=== PATIENT | female | born 1970 | race Caucasian/White ===

== ENCOUNTER 2017-01-06 06:39 | Emergency (ER) | payer OTHER ==
[~2017-01-06] VITALS: Ht 154.9 cm; Wt 125.0 kg
[~2017-01-06 06:39] MED LIST: ADIPEX-P37.5 MG PO; LORTAB 5/500 501 TAB PO; NO HOME MEDICATIONS; NORCO 325 MG-51 TAB PO; NORCO 325 MG-7.1 TAB PO; PRILOSEC 20MG20 MG PO; PRILOSEC40 MG PO; ZITHROMAX Z PA250 MG PO
[2017-01-06 06:42] VITALS: BP 172/84; TEMP 99.1
[2017-01-06] MEDS ORDERED: VALIUM 2MG T2 MG/TAB PO (07:12)
[2017-01-06 08:14] VITALS: PULSE 80
== END 2017-01-06 08:15 | disposition home or self-care (01) ==
LOC: COL.ER 06:39
DX: M43.6 Torticollis (principal); M62.838 Other muscle spasm; F17.210 Nicotine dependence, cigarettes, uncomplicated
CPT/HCPCS: J1885; J2360

== ENCOUNTER → 2017-09-18 | Outpatient (CLI) | payer OTHER ==
[~2017-09-18] MED LIST changes: +VALIUM 2MG T2 MG/TAB PO
== END ==
LOC: MC.RAD 12:44
DX: N60.02 Solitary cyst of left breast (principal)

== ENCOUNTER 2018-01-06 12:28 | Emergency (ER) | payer SELFPAY ==
[~2018-01-06] VITALS: Ht 154.9 cm; Wt 136.4 kg
[2018-01-06 12:33] VITALS: BP 176/99; TEMP 99.2
[2018-01-06] MEDS ORDERED: CLEOCIN HCL300 MG PO (13:39)
[2018-01-06 13:54] VITALS: PULSE 84
== END 2018-01-06 13:56 | disposition home or self-care (01) ==
LOC: COL.ER 12:28
DX: J02.9 Acute pharyngitis, unspecified (principal); H92.02 Otalgia, left ear; J45.909 Unspecified asthma, uncomplicated; Z98.890 Other specified postprocedural states; Z87.891 Personal history of nicotine dependence

== ENCOUNTER → 2018-01-23 | Outpatient (CLI) | payer SELFPAY ==
[~2018-01-23] MED LIST changes: +CLEOCIN HCL300 MG PO
== END ==
LOC: COL.RAD 12:15
DX: M47.814 Spondylosis without myelopathy or radiculopathy, thoracic region (principal); R05 Cough

== ENCOUNTER 2020-12-12 14:43 | Emergency (ER) | payer OTHER, MEDICAID ==
[~2020-12-12] VITALS: Ht 154.9 cm; Wt 138.6 kg
[2020-12-12 15:12] VITALS: BP 153/91; TEMP 97.1
[2020-12-12] MEDS ORDERED: K-DUR20 MEQ PO (15:47)
[2020-12-12] MEDS ORDERED: SINGULAIR 110 MG/TAB PO (15:48)
[2020-12-12] MEDS ORDERED: PAXIL CR 12.512.5 MG PO (15:48)
[2020-12-12] MEDS ORDERED: HYGROTON50 MG PO (15:48)
[2020-12-12] MEDS ORDERED: PRAVACHOL10 MG PO (15:49)
[2020-12-12] MEDS ORDERED: NORFLEX 10100 MG/TAB PO (15:57)
[2020-12-12] MEDS ORDERED: LIDODERM 5% PATC1 EA TP (15:57)
[2020-12-12] MEDS ORDERED: MEDROL 4MG DOSPA4 MG PO (16:13)
[2020-12-12] MEDS ORDERED: NORCO 325 MG-51 TAB PO (16:13)
[2020-12-12 16:25] VITALS: PULSE 89
== END 2020-12-12 16:26 | disposition home or self-care (01) ==
LOC: COL.ER 14:43
DX: M62.838 Other muscle spasm (principal); M25.511 Pain in right shoulder; J45.909 Unspecified asthma, uncomplicated; Z79.899 Other long term (current) drug therapy
CPT/HCPCS: J1885; J2360

== ENCOUNTER → 2021-11-23 | Outpatient (CLI) | payer MEDICAID ==
[~2021-11-23] MED LIST changes: +HYGROTON50 MG PO; +K-DUR20 MEQ PO; +LIDODERM 5% PATC1 EA TP; +MEDROL 4MG DOSPA4 MG PO; +NORFLEX 10100 MG/TAB PO; +PAXIL CR 12.512.5 MG PO; +PRAVACHOL10 MG PO; +SINGULAIR 110 MG/TAB PO
== END ==
LOC: MC.RAD 11:07
DX: Z12.31 Encounter for screening mammogram for malignant neoplasm of breast (principal)